=== PATIENT | female | born 1980 | race Caucasian/White ===

== ENCOUNTER 2016-08-29 06:08 | Day surgery (SDC) | payer BC ==
[~2016-08-29] VITALS: Ht 160 cm; Wt 45.8 kg
[2016-08-29 06:43] VITALS: Ht 160 cm; Wt 45.8 kg
[2016-08-29 07:17] VITALS: BP 130/77; PULSE 66; RESP 24
[2016-08-29] MEDS ORDERED: MIDAZOLAM 1 MG/ML 2 ML INJ ONE ×2 (07:39)
[2016-08-29] MEDS ORDERED: FENTAnyl 50 MCG/ML VIAL ONE (07:39)
[2016-08-29 08:02] VITALS: BP 127/66; PULSE 73; RESP 18
--- NOTE | 2016-08-29 11:20 | GILP ---
DATE OF PROCEDURE: 08/29/2016 NAME OF PROCEDURES: Esophagogastroduodenoscopy and biopsy. SURGEON: Chencho Lee MD PREOPERATIVE DIAGNOSIS: Abdominal pain. POSTOPERATIVE DIAGNOSES: 1. Gastritis with erosions. 2. Gastric mucosal biopsies were taken for histopathology. INDICATION FOR THE PROCEDURE: Ms. Danyell Bailey is a 35-year-old female patient who had upper abdomi nal pain, not responding to therapy. The patient was scheduled for endoscopic examination for [facility] evaluation. The procedure and possible complications are well explained to the patient, she understood and conse nted to the procedure. DESCRIPTION OF PROCEDURE: Under the influence of fentanyl and Versed, the gastroscope was carefully introduced into the esophagus and under direct vision it was advanced to the stomach and entering t he pylorus into the duodenal bulb and descending duodenum. FINDINGS: ESOPHAGUS: The mucosa was normal. STOMACH: The patient had gastritis with erosions. Gastric mucosal biopsies were taken for H. pylor i test. DUODENUM: Normal. She tolerated the procedure very well and there was no complication from the procedure. At the end of the procedure, she was awake with stable vital signs and she was discharged home to the care of [facility]. IMPRESSION: 1. Gastritis with erosions. 2. Gastric mucosal biopsies were taken for histopathology. PLAN: 1. Nexium 24 hours 22.3 mg p.o. q.a.m. 2. Bentyl 10 mg p.o. t.i.d. p.r.n. for pain. 3. Await histopathology report. Dictated By: CHENCHO DAUGHERTY/JOAN Conf#: [id number] DID#: [id number]
--- NOTE | 2016-08-29 19:28 | CONS ---
DATE OF ADMISSION: 08/29/2016 DATE OF CONSULTATION: PATIENT NAME: DANYELL SHIRLEY Dear Dr. Avelar: I thank you very much for this kind referral. HISTORY OF PRESENT ILLNESS: Ms. Danyell Shirley is a 35-year-old female patient who has been referred to me for further evaluation of epigastric pain, which is not responding to therapy with Prilosec. There is no past history of peptic ulcer disease. She is not taking any nonsteroidal anti-inflammat ory agents. Her appetite has been good, and she is not losing any weight. There is no history of g allstones. She does not have any fever, chills or jaundice. The patient had abdominal ultrasound a nd CT scan done and she was noted to have hemangioma of the liver. She denies any change in the bow el habit or rectal bleeding. There is no past history of inflammatory bowel disease. She is not a hypertensive or diabetic. She does not have any heart disease or lung problem. The patient has got renal stones and on the abdominal ultrasound she was noted to have slight hydronephrosis on the lef t side. SOCIAL HISTORY: She is a nonsmoker. She does not abuse alcohol. FAMILY HISTORY: There is no family history of gastrointestinal tract neoplasm. ALLERGIES: SHE STATES SHE IS ALLERGIC TO MONISTAT. MEDICATIONS: Prilosec. PHYSICAL EXAMINATION: GENERAL: She is 5 feet 3 inches tall and she weighs 104 pounds. HEART: Examination of the heart reveals normal first and second heart sounds. LUNGS: Clear. ABDOMEN: Soft without any distention. Liver and spleen are not palpable. There are no masses. Th ere is no focal tenderness. Normal bowel sounds are heard. CENTRAL NERVOUS SYSTEM: Does not reveal any focal neurological deficit. IMPRESSION: 1. Upper abdominal pain, not responding to therapy with Prilosec. 2. The patient had abdominal ultrasound and CT scan done and she was noted to have hemangioma of th e liver. 3. She also had renal stones with slight hydronephrosis on the left side. 4. HISTORY OF ALLERGY TO MONISTAT. PLAN: 1. Continue Prilosec. 2. Endoscopic examination for further evaluation. 3. The patient was advised to see the urologist for further evaluation of renal stones and hydronep hrosis on the left side. The procedure and possible complications are well explained to the patient. She understands and con sents to the procedure. I thank you once again. With warmest personal regards, Dictated By: CHENCHO CAR MD GD/NTS Conf#: [id number] DID#: [id number] CC: CHENCHO CAR MD;*EndCC*
== END 2016-08-29 08:42 | disposition home or self-care (01) ==
LOC: GIL 06:08
PROVIDERS: ATTEND Internal Medicine Gastroenterology
DX: K29.60 Other gastritis without bleeding (principal)
CPT/HCPCS: 43239; 84703; 88305; 88312; J2250; J3010; Z7610